=== PATIENT | female | born 1980 | race Hispanic/Latino ===

== ENCOUNTER 2023-11-22 18:44 | Emergency (ER) | payer SELFPAY ==
[2023-11-22] MEDS ORDERED: Cyclobenzaprine 10 MG TAB ONE (20:07)
[2023-11-22] MEDS ORDERED: Ibuprofen 200 MG TAB ONE (20:08)
== END 2023-11-22 21:29 | disposition home or self-care (01) ==
LOC: CSHERS 18:44
DX: M54.32 Sciatica, left side (principal); Z75.8 Other problems related to medical facilities and other health care